=== PATIENT | male | born 1960 | race Caucasian/White ===

== ENCOUNTER → 2023-01-01 13:22 | Outpatient (BNVA) | payer OTHER, SELFPAY | PROVIDERS: PCP Internal Medicine; Visit Provider Physician Assistant | DX: S39.012A Strain of muscle, fascia and tendon of lower back, initial encounter (principal); S33.8XXA Sprain of other parts of lumbar spine and pelvis, initial encounter; W18.39XA Other fall on same level, initial encounter | CPT/HCPCS: 99204 ==

== ENCOUNTER → 2023-01-13 09:41 | Outpatient (BNVA) | payer OTHER, SELFPAY | PROVIDERS: PCP Internal Medicine; Visit Provider Physician Assistant | DX: S39.012D Strain of muscle, fascia and tendon of lower back, subsequent encounter (principal); S33.8XXD Sprain of other parts of lumbar spine and pelvis, subsequent encounter; W18.39XD Other fall on same level, subsequent encounter | CPT/HCPCS: 72110; 73502; 99215 ==

== ENCOUNTER → 2023-01-20 09:37 | Outpatient (BNVA) | payer OTHER, SELFPAY | PROVIDERS: PCP Internal Medicine; Visit Provider Physician Assistant | DX: S39.012D Strain of muscle, fascia and tendon of lower back, subsequent encounter (principal); S33.6XXD Sprain of sacroiliac joint, subsequent encounter; W18.39XD Other fall on same level, subsequent encounter; M54.32 Sciatica, left side | CPT/HCPCS: 99213 ==

== ENCOUNTER → 2023-01-27 09:45 | Outpatient (BNVA) | payer OTHER, SELFPAY | PROVIDERS: PCP Internal Medicine; Visit Provider Physician Assistant | DX: S39.012D Strain of muscle, fascia and tendon of lower back, subsequent encounter (principal); W18.39XD Other fall on same level, subsequent encounter | CPT/HCPCS: 99214 ==

== ENCOUNTER → 2023-02-10 09:07 | Outpatient (BNVA) | payer OTHER, SELFPAY | PROVIDERS: PCP Internal Medicine; Visit Provider Physician Assistant | DX: M54.42 Lumbago with sciatica, left side (principal); M46.1 Sacroiliitis, not elsewhere classified | CPT/HCPCS: 99214 ==

== ENCOUNTER 2023-02-24 10:15 | Outpatient (REF) | payer OTHER, SELFPAY ==
[2023-02-24 13:44] LABS: Prostate Specific Antigen 1.01 ng/mL (<0.05-4.0)
== END 2023-02-24 10:16 | disposition home or self-care (01) ==
LOC: HO.LAB 10:15
PROVIDERS: Visit Provider Physician Assistant
DX: N40.1 Benign prostatic hyperplasia with lower urinary tract symptoms (principal); Z12.5 Encounter for screening for malignant neoplasm of prostate
CPT/HCPCS: 36415; 84153

== ENCOUNTER 2023-03-04 08:34 | Outpatient (REF) | payer OTHER, SELFPAY ==
--- NOTE | ~2023-03-04 | MR_ITS ---
EXAMINATION: MR PELVIS WITHOUT CONTRAST CLINICAL INFORMATION: Lumbar and SI joint pain. COMPARISON: MRI lumbosacral spine performed the same day. TECHNIQUE: MRI of the pelvis is performed without contrast on a high-field MRI scanner. Exam was tailored to evaluate the sacroiliac joints. FINDINGS: BONE/JOINTS: Sacroiliac Joints: Small marginal osteophytes along the anterior aspect of the sacroiliac joints bilaterally compatible with mild arthrosis. Minimal reactive edema related to the arthrosis. No joint effusion and no marginal erosions. The remaining visualized bone and joints are normal. NEUROVASCULAR STRUCTURES: Normal. MUSCLES/TENDONS: Normal. SUBCUTANEOUS SOFT TISSUES: Unremarkable. INTRAPELVIC SOFT TISSUES: Unremarkable. Lower lumbosacral spine incidental note, made of degenerative disc changes present at the L4-L5 and L5-S1 levels. This is more fully evaluated on a dedicated MRI of the lumbosacral spine performed same day. MR/MR pelvis wo con IMPRESSION: 1. Mild osteoarthritis of the sacroiliac joints. 2. Incidental note made of spondylosis of the partially visualized lumbosacral line. See report of dedicated MRI lumbosacral spine performed same day for full and more complete description of findings.
--- NOTE | ~2023-03-04 | MR_ITS ---
EXAMINATION: MR LUMBAR SPINE WITHOUT CONTRAST CLINICAL INFORMATION: Pain lumbar and SI joint worse with abdominal pressure. COMPARISON: None TECHNIQUE: MRI of the lumbar spine was obtained using routine sequences without contrast. FINDINGS: Lumbar vertebral bodies maintain normal heights. There is mild anterolisthesis of L4 on L5. There is severe disc height loss at L5-S1 and chronic fatty degenerative endplate changes with mild superimposed subchondral endplate edema. There is edema/stress response seen within the bilateral L4 and L5 pedicles. The distal spinal cord appears normal. Conus medullaris terminates normally at the L1 level. The visualized paraspinal muscles and intra-abdominal and pelvic contents are within normal limits. SPINAL LEVELS: L1-L2: Right subarticular protrusion resulting in compression of the traversing right L2 nerve root. Narrowing of the right neural foramen without compression of the exiting right L1 nerve root. L2-L3: Disc bulging with mild facet arthropathy. No spinal canal stenosis. Mild left more than right neural foraminal stenosis without foraminal nerve root compression. L3-L4: Disc bulging with mild facet arthropathy. Left greater than right foraminal protrusions resulting in compression of the exiting left more than right L3 nerve roots. Mild spinal canal stenosis. L4-L5: Disc bulging with severe facet arthropathy. Bilateral subarticular stenosis. Mild spinal canal stenosis. Left and right foraminal protrusions resulting in compression of the exiting left more than right L4 nerve roots. L5-S1: Disc bulging with osteophytic ridging and moderate to severe facet arthropathy. No spinal canal stenosis. Moderate to severe left and mild right neural foraminal stenosis. Osteophytic ridging compresses the extraforaminal left L5 nerve root. MR/MR lumbar spine wo con IMPRESSION: 1. Multilevel degenerative spondylosis without significant narrowing of the spinal canal. 2. At L1-L2 there is right subarticular protrusion causing compression of the traversing right L2 nerve root. 3. At L3-L4 there are bilateral foraminal protrusions causing compression of the exiting left more than right L3 nerve roots. 4. At L4-L5 there is bilateral foraminal protrusions causing compression of the exiting left more than right L4 nerve roots. 5. At L5-S1 there is osteophytic ridging causing compression of the extraforaminal left L5 nerve root.
== END 2023-03-04 08:35 | disposition home or self-care (01) ==
LOC: HO.MRI 08:34
PROVIDERS: PCP Internal Medicine; Visit Provider Internal Medicine
DX: M53.3 Sacrococcygeal disorders, not elsewhere classified (principal)
CPT/HCPCS: 72148; 72195

== ENCOUNTER → 2023-03-10 09:20 | Outpatient (BNVA) | payer OTHER, SELFPAY | PROVIDERS: PCP Internal Medicine; Visit Provider Physician Assistant | DX: M54.50 Low back pain, unspecified (principal) | CPT/HCPCS: 99214 ==

== ENCOUNTER → 2023-03-31 09:26 | Outpatient (BNVA) | payer OTHER, SELFPAY | PROVIDERS: PCP Internal Medicine; Visit Provider Physician Assistant | DX: M54.50 Low back pain, unspecified (principal); G54.9 Nerve root and plexus disorder, unspecified | CPT/HCPCS: 99214 ==

== ENCOUNTER → 2023-04-21 09:47 | Outpatient (BNVA) | payer OTHER, SELFPAY | PROVIDERS: PCP Internal Medicine; Visit Provider Physician Assistant | DX: M54.50 Low back pain, unspecified (principal); M54.16 Radiculopathy, lumbar region | CPT/HCPCS: 99213 ==

== ENCOUNTER → 2023-05-13 10:43 | Outpatient (BNVA) | payer OTHER, SELFPAY | PROVIDERS: PCP Internal Medicine; Visit Provider Physician Assistant | DX: M54.50 Low back pain, unspecified (principal); G58.9 Mononeuropathy, unspecified | CPT/HCPCS: 99213 ==

== ENCOUNTER 2023-06-04 10:49 | Outpatient (AMB) | payer OTHER, SELFPAY ==
--- NOTE | 2023-06-04 10:59 | MHC.OFFVIS ---
Intake Vital Signs 06/04/23 11:13 Height 5 ft 10 in Weight 217 lb 8 oz BMI 31.2 BP 142/82 H Blood Pressure Location Lt brachial Position Sitting Respiration 18 Pulse 84 Pulse Source Pulse Oximeter Pulse Oximetry (%) 96 Oxygen Delivery Method Room Air Intake Visit Reasons: Multi level disopathy nerve root compression Allergies No Known Allergies Allergy (Verified 06/04/23 10:57) HPI HPI Comments History of Present Illness Details Cholo is a very pleasant 62-year-old male who presents to the office today for evaluation and management of his lower back pain. Patient reports that approximately 5 months ago he injured his back at work while lifting. Initially he was experiencing shocking pain which lasted for a couple weeks. He was treated with oral steroids which resolved the shocking pain. After that he developed spasms in his lower back. He reports that since starting physical therapy the spasms are very minimal and rare. He reports pain across the lower back worse on left side with some radiation into the groin. He denies radiation or shooting pains into either lower extremity. He denies numbness, tingling, pins or needles. The patient reports that he is not currently taking any medication for the pain. He previously took Tylenol, nonsteroidal anti-inflammatory medication and muscle relaxers. He's currently enrolled in physical therapy and is also doing home exercises as advised. He reports that since starting physical therapy and doing HEP his pain has improved approximately 80%. Pain today is rated as 3/10. He states that he feels constant dull aching pain. His main concern today is returning to work. He states that at home he has been able to maintain activity to some extent. 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 He reports that he has not been doing activities that he enjoys such as golfing, bowling or metal detecting as he does not want to aggravate the pain. Patient had recent MRI, results as per below. He was evaluated by Dr. Rodriguez office, neurosurgery, and told that surgical intervention is not warranted at this time. Patient denies red flag symptoms including loss of bowel, bladder or saddle anesthesia. Review of Systems Const All systems reviewed & are unremarkable except as noted in HPI and below Physical Exam Vital Signs: Last Vital Signs Pulse 84 06/04/23 11:13 Resp 18 06/04/23 11:13 BP 142/82 H 06/04/23 11:13 Pulse Ox 96 06/04/23 11:13 Oxygen Delivery Method Room Air 06/04/23 11:13 BMI result Body Mass Index 31.2 General: awake, alert, oriented. Answers questions appropriately. Fully engaged in examination. Skin: warm, dry, intact HEENT: Normocephalic. Hearing intact. Cardiac: External chest normal in appearance. Respiratory: No cough, audible wheezing or stridor. Abdomen: without gross distension. MS: No obvious swelling or deformities. Able to stand on bilateral tiptoes and bilateral heels.? Able to transition from sit to stand unassisted. Ambulates with bilaterally normal heel strike and toe off LS ROM extension to 15 degrees. flexion to 70 deg.sami Strength: 5/5 BLE Sensation: intact and symmetric BLE Tender to palpation over bilateral PSIS Gaenslen test is positive bilaterally, L>R Tracey positive bilaterally, L>R SLR with and without dorsiflexion negative bilaterally. Loading test is positive bilaterally Neurological: Oriented to person, place, time and situation. Thought process intact. No gait abnormalities appreciated. Psychiatric: Appropriate mood and affect. Good judgment and insight. Results Reviewed Results Reviewed: 03/04/2023 FINDINGS: Lumbar vertebral bodies maintain normal heights. There is mild anterolisthesis of L4 on L5. There is severe disc height loss at L5-S1 and chronic fatty degenerative endplate changes with mild superimposed subchondral endplate edema. There is edema/stress response seen within the bilateral L4 and L5 pedicles. The distal spinal cord appears normal. Conus medullaris terminates normally at the L1 level. The visualized paraspinal muscles and intra-abdominal and pelvic contents are within normal limits. SPINAL LEVELS: L1-L2: Right subarticular protrusion resulting in compression of the traversing right L2 nerve root. Narrowing of the right neural foramen without compression of the exiting right L1 nerve root. L2-L3: Disc bulging with mild facet arthropathy. No spinal canal stenosis. Mild left more than right neural foraminal stenosis without foraminal nerve root compression. L3-L4: Disc bulging with mild facet arthropathy. Left greater than right foraminal protrusions resulting in compression of the exiting left more than right L3 nerve roots. Mild spinal canal stenosis. L4-L5: Disc bulging with severe facet arthropathy. Bilateral subarticular stenosis. Mild spinal canal stenosis. Left and right foraminal protrusions resulting in compression of the exiting left more than right L4 nerve roots. L5-S1: Disc bulging with osteophytic ridging and moderate to severe facet arthropathy. No spinal canal stenosis. Moderate to severe left and mild right neural foraminal stenosis. Osteophytic ridging compresses the extraforaminal left L5 nerve root. IMPRESSION: 1. Multilevel degenerative spondylosis without significant narrowing of the spinal canal. 2. At L1-L2 there is right subarticular protrusion causing compression of the traversing right L2 nerve root. 3. At L3-L4 there are bilateral foraminal protrusions causing compression of the exiting left more than right L3 nerve roots. 4. At L4-L5 there is bilateral foraminal protrusions causing compression of the exiting left more than right L4 nerve roots. 5. At L5-S1 there is osteophytic ridging causing compression of the extraforaminal left L5 nerve root. Assessment & Plan Assessment & Plan (1) Lumbar facet arthropathy: Code(s): M47.816 - Spondylosis without myelopathy or radiculopathy, lumbar region (2) Sacroiliac joint dysfunction of both sides: Code(s): M53.3 - Sacrococcygeal disorders, not elsewhere classified (3) Lumbar spondylosis: Code(s): M47.816 - Spondylosis without myelopathy or radiculopathy, lumbar region Plan Cholo is a very pleasant 62 year old male who presented to the office today for evaluation and management of his lower back pain. His main concern today is returning to work. History, physical exam and provocative testing most consistent with bilateral SIJ dysfunction and lumbar facet arthropathy. Patient is having good results with PT, he is going to continue PT and HEP. Discussed options for treatment including diagnostic interventional testing, steroid injections, peripheral nerve stimulation with Sprint, RFA and more permanent neuromodulation. Given patients reported acceptable level of pain with ability to perform activities of daily living, he would like to hold on interventional procedures at this time. Follow up with work connections to discuss return to work with restrictions. Patient will follow up here as needed, he was advised that increased activity may exacerbate his pain. He can call to schedule follow up appointment at any time. All questions and concerns have been answered and patient agrees with the plan. Follow up as needed. Coding Level of Care Code New Pt Level 4 (79058) Diagnoses Lumbar facet arthropathy M47.816 Sacroiliac joint dysfunction of both sides M53.3 Lumbar spondylosis M47.816
[2023-06-04 11:13] VITALS: BP 142/82; PULSE 84; RESP 18; O2SAT 96; BMI 31.2
== END 2023-06-04 11:57 | disposition home or self-care (01) ==
PROVIDERS: PCP Internal Medicine; Visit Provider Registered Nurse Emergency
DX: M47.816 Spondylosis without myelopathy or radiculopathy, lumbar region (principal); M53.3 Sacrococcygeal disorders, not elsewhere classified
CPT/HCPCS: 99204

== ENCOUNTER → 2023-06-04 10:49 | Outpatient (BNVA) | payer OTHER, SELFPAY | PROVIDERS: PCP Internal Medicine; Visit Provider Registered Nurse Emergency ==

== ENCOUNTER → 2023-06-11 11:10 | Outpatient (BNVA) | payer OTHER, SELFPAY | PROVIDERS: PCP Internal Medicine; Visit Provider Physician Assistant | DX: M54.50 Low back pain, unspecified (principal); M51.17 Intervertebral disc disorders with radiculopathy, lumbosacral region; G58.9 Mononeuropathy, unspecified | CPT/HCPCS: 99214 ==

== ENCOUNTER 2023-06-17 10:00 | Outpatient (RCR) | payer OTHER, SELFPAY ==
--- NOTE | 2023-04-19 14:37 | MHC.PT.EP ---
[facility] [place] [facility] [place] [facility] [place] [facility] [address] Roxy Guerra [address] [phone] F: [phone] F: [phone] F: [phone] F: [phone] Physical Therapy Plan of Care Date of Evaluation: Date of Surgery: Diagnosis: Lumbago with nerve compression (MD Dx) Low back strain and lumbar spine multi level disc protrusions L1-S1 WITHOUT radiculopathy (PT Dx) Assessment: Patient is a pleasant 62 y.o. 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 He is referred to PT by Christina Zabala PA-C, with Dx of Lumbago with nerve compression. PT diagnosis is low back strain and lumbar spine multi level disc protrusions L1-S1 WITHOUT radiculopathy. MRI impression reveals: There is mild anterolisthesis of L4 on L5. There is severe disc height loss at L5-S1. There is edema/stress response seen within the bilateral L4 and L5 pedicles. Multilevel degenerative spondylosis without significant narrowing of the spinal canal. At L1-L2 there is right subarticular protrusion causing compression of the traversing right L2 nerve root. At L3-L4 there are bilateral foraminal protrusions causing compression of the exiting left more than right L3 nerve roots. At L4-L5 there is bilateral foraminal protrusions causing compression of the exiting left more than right L4 nerve roots. At L5-S1 there is osteophytic ridging causing compression of the extraforaminal left L5 nerve root. Patient impairments include poor postures, pain, mild core and hip weakness, limited ROM. Patient current functional limitations are sneezing, bend/lift, prolonged sitting, walking, grocery shopping, prolonged standing, high step into truck, twist to get into truck seat, yard work. Patient will benefit from skilled PT to address aforementioned impairments and functional limitations to meet established goals. Frequency and Duration: The patient will be seen 2x/week for 4 wesk Short Term Goals: 2 weeks Patient demonstrates consistency and independence with HEP to self manage symptoms. 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 Patient presents with increased lumbar spine AROM flexion 90 degrees to be able to squat to lift 25# floor to waist with proper form. Treatment Plan: Modalities to reduce pain, spasms and effusion. Manual therapy to restore motion and function. Therapeutic exercise to improve strength and flexibility. Neuromuscular re-education for posture and balance. Therapeutic activities to return to functional activities of daily living. Electronically signed by: Roman Calvert PT, DPT Please sign and return to therapist. Thank you for your referral.
--- NOTE | 2023-08-17 11:59 | MHC.PT.DC ---
[facility] [place] Office [place] [facility] [place] [facility] [address] Roxy Guerra [address] [phone] F: [phone] F: [phone] F: [phone] F: [phone] Physical Therapy Discharge Report Diagnosis: Lumbago with nerve compression (MD Dx) Low back strain and lumbar spine multi level disc protrusions L1-S1 WITHOUT radiculopathy (PT Dx) Date of Surgery: Date of Evaluation: 04/19/23 Date of Discharge: 08/17/23 Treatments to Date: 15 Cancellations to Date: No Shows to Date: Discharge Status: Discharge Summary: Patient demonstrated significant improvement in lumbar sxs with PT interventions. 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 Last PT session on 06/17/23 states, Pt informed by work connection that they are recommending work hardening and Pt waiting for approval and until then Pt on hold. Patient was approved for work hardening and is therefore discharged from PT. Electronically signed by: Please sign and return to therapist. Thank you for your referral.
== END 2023-08-17 11:59 | disposition home or self-care (01) ==
LOC: HO.PT 10:00
PROVIDERS: PCP Internal Medicine; Visit Provider Physician Assistant
DX: M54.50 Low back pain, unspecified (principal); G58.9 Mononeuropathy, unspecified
CPT/HCPCS: 97110; 97140; 97161; 97530

== ENCOUNTER → 2023-07-01 08:54 | Outpatient (BNVA) | payer OTHER, SELFPAY | PROVIDERS: PCP Internal Medicine; Visit Provider Physician Assistant | DX: M54.50 Low back pain, unspecified (principal) | CPT/HCPCS: 99214 ==

== ENCOUNTER 2023-07-07 13:52 | Outpatient (AMB) | payer OTHER, SELFPAY ==
[2023-07-07 14:03] VITALS: BP 160/90; PULSE 82; RESP 18; O2SAT 97; BMI 31.6
--- NOTE | 2023-07-07 14:03 | MHC.OFFVIS ---
Intake Vital Signs 07/07/23 14:03 Height 5 ft 10 in Weight 220 lb BMI 31.6 BP 160/90 H Blood Pressure Location Rt brachial Position Sitting Respiration 18 Pulse 82 Pulse Source Pulse Oximeter Pulse Oximetry (%) 97 Oxygen Delivery Method Room Air Intake Visit Reasons: CONTINOUS BACK PAIN Allergies No Known Allergies Allergy (Verified 07/07/23 14:02) HPI HPI Comments History of Present Illness Details Cholo presents back to the office today for follow up lower back pain. Patient reports pain persists, is worse now than it was at last visit. He had been in PT, states after PT at [facility] he started at [facility] which involves 2 hours intense sessions. He was doing increasing activity while carrying approx 30 pounds of weight in a crate. He states after this he noticed pain was worse and muscle spasms returned. During the day pain is tolerable at 5/6 out of 10 but will increase to 10/10 at night. Pain is worse with sitting, climbing stairs, lying on his side. He states left side is worse than the right, denies radiation of pain down either leg. PCP recently prescribed flexeril, patient states this has not helped his spasms at night. He has been taking motrin for the pain with minimal relief. Patient states he is very frustrated with how long it has taken to get back to work. The pain is negatively impacting his mental, emotional well being as he is worried he will never get better. Patient denies red flag symptoms including new loss of bowel, bladder or saddle anesthesia. Prior: Cholo is a very pleasant 62-year-old male who presents to the office today for evaluation and management of his lower back pain. Patient reports that approximately 5 months ago he injured his back at work while lifting. Initially he was experiencing shocking pain which lasted for a couple weeks. He was treated with oral steroids which resolved the shocking pain. After that he developed spasms in his lower back. He reports that since starting physical therapy the spasms are very minimal and rare. He reports pain across the lower back worse on left side with some radiation into the groin. He denies radiation or shooting pains into either lower extremity. He denies numbness, tingling, pins or needles. The patient reports that he is not currently taking any medication for the pain. He previously took Tylenol, nonsteroidal anti-inflammatory medication and muscle relaxers. He's currently enrolled in physical therapy and is also doing home exercises as advised. He reports that since starting physical therapy and doing HEP his pain has improved approximately 80%. Pain today is rated as 3/10. He states that he feels constant dull aching pain. His main concern today is returning to work. He states that at home he has been able to maintain activity to some extent. 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 He reports that he has not been doing activities that he enjoys such as golfing, bowling or metal detecting as he does not want to aggravate the pain. Patient had recent MRI, results as per below. He was evaluated by Dr. Rodriguez office, neurosurgery, and told that surgical intervention is not warranted at this time. Patient denies red flag symptoms including loss of bowel, bladder or saddle anesthesia. Review of Systems Const All systems reviewed & are unremarkable except as noted in HPI and below Physical Exam Vital Signs: Last Vital Signs Pulse 82 07/07/23 14:03 Resp 18 07/07/23 14:03 BP 160/90 H 07/07/23 14:03 Pulse Ox 97 07/07/23 14:03 Oxygen Delivery Method Room Air 07/07/23 14:03 BMI result Body Mass Index 31.6 General: awake, alert, oriented. Answers questions appropriately. Fully engaged in examination. Skin: warm, dry, intact HEENT: Normocephalic. Hearing intact. Cardiac: External chest normal in appearance. Respiratory: No cough, audible wheezing or stridor. Abdomen: without gross distension. MS: No obvious swelling or deformities. Able to stand on bilateral tiptoes and bilateral heels.? Able to transition from sit to stand unassisted. Ambulates with bilaterally normal heel strike and toe off LS ROM extension to 15 degrees. flexion to 60 deg.sami Strength: 5/5 BLE Sensation: intact and symmetric BLE Tender to palpation over bilateral PSIS L>R Gaenslen test is positive bilaterally, L>R Tracey positive bilaterally, L>R SLR with and without dorsiflexion negative bilaterally. Loading test is positive bilaterally Neurological: Oriented to person, place, time and situation. Thought process intact. No gait abnormalities appreciated. Psychiatric: Appropriate mood and affect. Good judgment and insight. Results Reviewed Results Reviewed: 03/04/2023 FINDINGS: Lumbar vertebral bodies maintain normal heights. There is mild anterolisthesis of L4 on L5. There is severe disc height loss at L5-S1 and chronic fatty degenerative endplate changes with mild superimposed subchondral endplate edema. There is edema/stress response seen within the bilateral L4 and L5 pedicles. The distal spinal cord appears normal. Conus medullaris terminates normally at the L1 level. The visualized paraspinal muscles and intra-abdominal and pelvic contents are within normal limits. SPINAL LEVELS: L1-L2: Right subarticular protrusion resulting in compression of the traversing right L2 nerve root. Narrowing of the right neural foramen without compression of the exiting right L1 nerve root. L2-L3: Disc bulging with mild facet arthropathy. No spinal canal stenosis. Mild left more than right neural foraminal stenosis without foraminal nerve root compression. L3-L4: Disc bulging with mild facet arthropathy. Left greater than right foraminal protrusions resulting in compression of the exiting left more than right L3 nerve roots. Mild spinal canal stenosis. L4-L5: Disc bulging with severe facet arthropathy. Bilateral subarticular stenosis. Mild spinal canal stenosis. Left and right foraminal protrusions resulting in compression of the exiting left more than right L4 nerve roots. L5-S1: Disc bulging with osteophytic ridging and moderate to severe facet arthropathy. No spinal canal stenosis. Moderate to severe left and mild right neural foraminal stenosis. Osteophytic ridging compresses the extraforaminal left L5 nerve root. IMPRESSION: 1. Multilevel degenerative spondylosis without significant narrowing of the spinal canal. 2. At L1-L2 there is right subarticular protrusion causing compression of the traversing right L2 nerve root. 3. At L3-L4 there are bilateral foraminal protrusions causing compression of the exiting left more than right L3 nerve roots. 4. At L4-L5 there is bilateral foraminal protrusions causing compression of the exiting left more than right L4 nerve roots. 5. At L5-S1 there is osteophytic ridging causing compression of the extraforaminal left L5 nerve root. Assessment & Plan Assessment & Plan (1) Lumbar facet arthropathy: Code(s): M47.816 - Spondylosis without myelopathy or radiculopathy, lumbar region (2) Sacroiliac joint dysfunction of both sides: Code(s): M53.3 - Sacrococcygeal disorders, not elsewhere classified (3) Lumbar spondylosis: Code(s): M47.816 - Spondylosis without myelopathy or radiculopathy, lumbar region Plan Cholo is a very pleasant 62 year old male who presented back to the office today for follow up. History, physical exam and provocative testing most consistent with bilateral SIJ dysfunction and lumbar facet arthropathy. Patient has failed conservative treatment including NSAIDs, muscle relaxers, PT and HEP. Will d/c cyclobenzaprine and trial Tizanidine 2mg po qhs at bedtime. Discussed options for treatment including diagnostic interventional testing, steroid injections, peripheral nerve stimulation with Sprint, RFA and more permanent neuromodulation. Schedule for Fluoroscopy guided bilateral diagnostic SIJ injections with local anesthetic. All questions and concerns have been answered and patient agrees with the plan. Follow up as needed. Medications: New tizanidine 2 mg PO BEDTIME PRN 30 tabs 0RF muscle spasticity Coding Level of Care Code Est Pt Level 4 (23918) Diagnoses Lumbar facet arthropathy M47.816 Sacroiliac joint dysfunction of both sides M53.3 Lumbar spondylosis M47.816
== END 2023-07-07 14:25 | disposition home or self-care (01) ==
PROVIDERS: PCP Internal Medicine; Visit Provider Registered Nurse Emergency
DX: M47.816 Spondylosis without myelopathy or radiculopathy, lumbar region (principal); M53.3 Sacrococcygeal disorders, not elsewhere classified
CPT/HCPCS: 99214

== ENCOUNTER → 2023-07-07 13:52 | Outpatient (BNVA) | payer OTHER, SELFPAY | PROVIDERS: PCP Internal Medicine; Visit Provider Registered Nurse Emergency | DX: M47.816 Spondylosis without myelopathy or radiculopathy, lumbar region (principal); M53.3 Sacrococcygeal disorders, not elsewhere classified | CPT/HCPCS: 99212 ==

== ENCOUNTER → 2023-07-30 08:49 | Outpatient (BNVA) | payer OTHER, SELFPAY | PROVIDERS: PCP Internal Medicine; Visit Provider Physician Assistant | DX: M51.16 Intervertebral disc disorders with radiculopathy, lumbar region (principal); M46.1 Sacroiliitis, not elsewhere classified | CPT/HCPCS: 99214 ==

== ENCOUNTER → 2023-08-13 08:50 | Outpatient (BNVA) | payer OTHER, SELFPAY | PROVIDERS: PCP Internal Medicine; Visit Provider Physician Assistant | DX: M54.50 Low back pain, unspecified (principal); G58.9 Mononeuropathy, unspecified | CPT/HCPCS: 99213 ==

== ENCOUNTER → 2023-09-15 08:48 | Outpatient (BNVA) | payer OTHER, SELFPAY | PROVIDERS: PCP Internal Medicine; Visit Provider Physician Assistant | DX: M54.59 Other low back pain (principal); G54.4 Lumbosacral root disorders, not elsewhere classified | CPT/HCPCS: 99214 ==

== ENCOUNTER → 2023-10-26 08:46 | Outpatient (BNVA) | payer OTHER, SELFPAY | PROVIDERS: PCP Internal Medicine; Visit Provider Physician Assistant | DX: S34.21XD Injury of nerve root of lumbar spine, subsequent encounter (principal); X58.XXXD Exposure to other specified factors, subsequent encounter | CPT/HCPCS: 99213 ==

== ENCOUNTER → 2023-12-29 09:10 | Outpatient (BNVA) | payer OTHER, SELFPAY | PROVIDERS: PCP Internal Medicine; Visit Provider Physician Assistant | DX: M54.50 Low back pain, unspecified (principal); G58.9 Mononeuropathy, unspecified | CPT/HCPCS: 99214 ==

== ENCOUNTER → 2024-02-09 08:56 | Outpatient (BNVA) | payer OTHER, SELFPAY | PROVIDERS: PCP Internal Medicine; Visit Provider Physician Assistant | DX: M54.50 Low back pain, unspecified (principal); G95.20 Unspecified cord compression | CPT/HCPCS: 99213 ==